=== PATIENT | male | born 1965 | race Two or more races ===

== ENCOUNTER 2024-09-30 09:17 | Outpatient (CLI) | payer OTHER ==
[2024-09-30 10:42] LABS: CREATININE SERUM 0.94 mg/dL (0.55-1.02)
== END 2024-09-30 09:28 | disposition home or self-care (01) ==
LOC: EDSEX 09:17 → EDBD 09:17 → LAB 09:17
PROVIDERS: ATTEND Radiology Diagnostic Radiology
DX: R10.13 Epigastric pain (principal)

== ENCOUNTER 2024-10-02 08:26 | Outpatient (CLI) | payer OTHER | END 2024-10-02 08:30 | disposition home or self-care (01) | LOC: MRI 08:26 | PROVIDERS: ATTEND Internal Medicine Gastroenterology | DX: R10.13 Epigastric pain (principal); R93.3 Abnormal findings on diagnostic imaging of other parts of digestive tract; R93.2 Abnormal findings on diagnostic imaging of liver and biliary tract | CPT/HCPCS: 74183 ==